=== PATIENT | male | born 1980 | race Caucasian/White ===

== ENCOUNTER 2023-05-26 13:17 | Outpatient (CLI) | payer BC, SELFPAY | END 2023-05-26 13:18 | disposition home or self-care (01) | PROVIDERS: PCP Nurse Practitioner Family; Visit Provider Nurse Practitioner Family | DX: Z00.00 Encounter for general adult medical examination without abnormal findings (principal); R10.13 Epigastric pain; R07.89 Other chest pain; R06.09 Other forms of dyspnea; R00.2 Palpitations; Z13.6 Encounter for screening for cardiovascular disorders | CPT/HCPCS: 80053; 80061; 84443; 85025 ==

== ENCOUNTER 2023-07-01 07:50 | Outpatient (CLI) | payer BC, SELFPAY | END 2023-07-01 07:51 | disposition home or self-care (01) | PROVIDERS: PCP Nurse Practitioner Family; Visit Provider Nurse Practitioner Family | DX: R07.89 Other chest pain (principal) | CPT/HCPCS: 93306 ==

== ENCOUNTER 2023-11-14 11:46 | Outpatient (CLI) | payer BC, SELFPAY | END 2023-11-14 11:47 | disposition home or self-care (01) | PROVIDERS: PCP Nurse Practitioner Family; Visit Provider Nurse Practitioner Family | DX: R10.13 Epigastric pain (principal); Z13.228 Encounter for screening for other metabolic disorders; Z13.0 Encounter for screening for diseases of the blood and blood-forming organs and certain disorders involving the immune mechanism | CPT/HCPCS: 80053; 82150; 83690; 85025 ==

== ENCOUNTER 2023-11-17 11:48 | Outpatient (CLI) | payer BC, SELFPAY | END 2023-11-17 11:49 | disposition home or self-care (01) | PROVIDERS: PCP Nurse Practitioner Family; Visit Provider Nurse Practitioner Family | DX: R10.9 Unspecified abdominal pain (principal) | CPT/HCPCS: 87338 ==

== ENCOUNTER 2023-11-22 06:32 | Outpatient (CLI) | payer BC, SELFPAY ==
--- NOTE | 2023-11-22 07:37 | W.ANESCHARGE ---
Anesthesia Charges Start Date/Time Anesthesia Start Date: 11/22/23 Anesthesia Start Time: 07:15 Stop Date/Time Anesthesia Stop Date: 11/22/23 Anesthesia Stop Time: 07:35
--- NOTE | 2023-11-22 10:44 | W.ANESCHARGE ---
Anesthesia Charges Start Date/Time Anesthesia Start Date: 11/22/23 Anesthesia Start Time: 07:15 Stop Date/Time Anesthesia Stop Date: 11/22/23 Anesthesia Stop Time: 07:35
== END 2023-11-22 06:33 | disposition home or self-care (01) ==
PROVIDERS: PCP Nurse Practitioner Family; Visit Provider Internal Medicine
DX: R12 Heartburn (principal)
CPT/HCPCS: 00731; 00811; 43239; 88305; J2704

== ENCOUNTER 2023-12-02 14:40 | Outpatient (CLI) | payer BC, SELFPAY ==
--- NOTE | 2023-12-02 15:00 | US_ITS ---
Patient: EMANUEL MCMANUS Facility:?[facility] Patient ID:?[id number] Site Patient ID:?[id number]. Site :?1980 Study:?US-Abdomen RUQ-12/02/2023 3:12:59 PM Ordering Physician:MELISSA REYES Final Report: INDICATION: : Abdominal distention COMPARISON: CT 05/01/2020 TECHNIQUE: Grayscale and color Doppler ultrasound of the right upper quadrant. FINDINGS: Pancreas: Largely obscured by bowel gas but normal where seen. Liver: Normal. No mass. Gallbladder and bile ducts: Normal gallbladder. No wall thickening. No stones or sludge. No biliary duct dilation. The common bile duct measures 5 mm. The right kidney measures 10.3 cm in length. Normal parenchymal echogenicity. Normal thickness. No cyst. No mass. No calculi. No urinary tract dilation. No ascites. Normal caliber upper abdominal aorta. IMPRESSION: Normal right upper quadrant ultrasound. Dictated by Saba Kay MD @ 12/03/2023 8:44:41 AM Signed by:?Saba Kay MD @12/03/2023 8:44:41 AM (Electronic Signature)
== END 2023-12-02 14:41 | disposition home or self-care (01) ==
LOC: US 14:42
PROVIDERS: PCP Nurse Practitioner Family; Visit Provider Nurse Practitioner Family
DX: R14.0 Abdominal distension (gaseous) (principal)
CPT/HCPCS: 76705

== ENCOUNTER 2023-12-12 15:19 | Outpatient (CLI) | payer BC, SELFPAY ==
--- NOTE | 2023-12-12 16:00 | CT_ITS ---
Patient: EMANUEL MCMANUS Facility:?[facility] Patient ID:?[id number] Site Patient ID:?[id number]. Site :?1980 Study:?CT-Abdomen W/ 99CC ISOVUE 370-12/12/2023 4:03:26 PM Ordering Physician:SAMPSON Final Report: Indication: RUQ PAIN Technique: CT Abdomen W/ 99CC ISOVUE 370 Please note that all CT scans at this facility use dose modulation, iterative reconstruction, and/or weight-based dosing when appropriate to reduce radiation dose to as low as reasonably achievable. Comparison: 05/01/2020 Findings: Mild dependent areas of atelectasis. No pleural effusion. No intrahepatic mass. Focal fat deposition is present adjacent to the falciform ligament. The spleen is normal. Normal adrenal glands. The kidneys are within normal limits. Gallbladder is unremarkable. Normal pancreas. No hiatal hernia. No gastric outlet obstruction. No dilated bowel loops. Normal appearance of the visualized small bowel and colon. No inflammatory changes. No fracture. Impression: Unremarkable CT of the abdomen. No acute findings to explain patient`s symptoms. Please note that all CT scans at this facility use dose modulation, iterative reconstruction, and/or weight-based dosing when appropriate to reduce radiation dose to as low as reasonably achievable. Dictated by John Walton MD @ 12/13/2023 8:05:00 AM Signed by:?John Walton MD @12/13/2023 8:05:00 AM (Electronic Signature)
== END 2023-12-12 15:20 | disposition home or self-care (01) ==
PROVIDERS: PCP Nurse Practitioner Family; Visit Provider Nurse Practitioner Family
DX: R10.11 Right upper quadrant pain (principal); R14.0 Abdominal distension (gaseous); R74.8 Abnormal levels of other serum enzymes
CPT/HCPCS: 74160; Q9967

== ENCOUNTER 2024-09-13 23:13 | Outpatient (REF) | payer BC, SELFPAY ==
[2024-09-14 01:27] LABS: Basophils Absolute Auto 0.06 K/uL (0.00-0.30); Basophils Percent Auto 0.9 % (0.0-3.0); Eosinophils Absolute Auto 0.13 K/uL (0.00-0.50); Hematocrit 44.6 % (37.0-53.0); Hemoglobin* 14.2 gm/dL (13.5-17.5); Immature Granulocytes Abs Auto 0.02 K/uL (0.00-0.30); Immature Granulocytes Pct Auto 0.3 %; Lymphocytes Absolute Auto 2.68 K/uL (0.90-2.90); Lymphocytes Percent Auto 40.2 % (20-44); Mean Corpuscular HGB Conc 32 gm/dL (32-36); Mean Corpuscular Hemoglobin 29 pg (26-34); Mean Corpuscular Volume 92 fL (80-100); Monocytes Percent Auto 7.2 % (0.0-11.0); Neutrophils Absolute Auto 3.29 K/uL (1.7-7.0); Neutrophils Percent Auto 49.4 % (42.0-72.0); Platelet Count* 161 K/uL (140-440); RDW Coefficient of Variation % 13.1 % (11.5-15.5); Red Blood Count 4.87 m/uL (4.30-5.90); White Blood Count* 6.66 K/uL (4.50-11.00)
[2024-09-14 01:37] LABS: Slide Review Reflex No
[2024-09-14 01:39] LABS: INR 0.92 (0.91-1.10); Prothrombin Time 12.9 Seconds
[2024-09-14 01:45] LABS: Albumin* 4.3 g/dL (3.3-5.0); Chloride* 102 mmol/L (96-114)
[2024-09-14 01:46] LABS: Potassium* 4.6 mmol/L (3.6-5.1); Sodium* 139 mmol/L (135-149)
[2024-09-14 01:47] LABS: Iron* 117 ug/dL (49-181)
[2024-09-14 01:48] LABS: Alkaline Phosphatase* 54 U/L (40-150); Anion Gap 5 mEq/L (7-15); Aspartate Amino Transferase* 24 U/L (12-35); Bilirubin Total* 0.6 mg/dL (0.1-1.5); Carbon Dioxide* 32 mmol/L (20-32); Creatinine* 0.9 mg/dL (0.5-1.5); Estimated Glomerular Filt Rate 109 ml/min; Total Protein* 6.7 g/dL (6.0-8.3)
[2024-09-14 01:49] LABS: Alanine Aminotransferase* 18 U/L (4-50); Blood Urea Nitrogen* 16 mg/dL (5-24); Calcium* 9.7 mg/dL (8.4-10.6); Glucose* 120 mg/dL (60-115)
[2024-09-14 01:57] LABS: Percent Iron Saturation 43 % (20-50); Total Iron Binding Capacity 273 ug/dL (261-462)
[2024-09-14 02:12] LABS: Vitamin D 25 Hydroxy* 59 ng/mL (30-80)
[2024-09-14 02:32] LABS: C Reactive Protein* < 0.5 mg/dL (0.5-1.0)
[2024-09-14 03:29] LABS: Vitamin B12* 577 pg/mL (243-894)
[2024-09-15 05:09] LABS: Folate, Serum 9.3 ng/mL (>=5.9)
[2024-09-17 06:59] LABS: Copper, Serum/Plasma 78.5 ug/dL (70.0-140.0); Zinc, Serum/Plasma 75.6 ug/dL (60.0-120.0)
[2024-09-17 19:59] LABS: Vitamin A (Retinol) 0.66 mg/L (0.30-1.20)
== END 2024-09-13 23:14 | disposition home or self-care (01) ==
LOC: NPINS 23:13
PROVIDERS: PCP Nurse Practitioner Family; Visit Provider Nurse Practitioner Adult Health
DX: R63.4 Abnormal weight loss (principal)
CPT/HCPCS: 80048; 80076; 82306; 82380; 82525; 82607; 82728; 82746; 83540; 83550; 84443; 84446; 84590; 84630; 85025; 85610; 86140

== ENCOUNTER 2024-10-08 14:58 | Outpatient (REF) | payer BC, SELFPAY ==
[2024-10-16 14:11] LABS: Tissue Transglut Ab IgA 1.33 FLU (0.00-4.99)
== END 2024-10-08 14:59 | disposition home or self-care (01) ==
LOC: NPINS 14:58
PROVIDERS: PCP Nurse Practitioner Family; Visit Provider Nurse Practitioner Adult Health
DX: Z83.79 Family history of other diseases of the digestive system (principal)
CPT/HCPCS: 82784; 86364

== ENCOUNTER 2024-11-29 19:09 | Emergency (ER) | payer BC, SELFPAY ==
[2024-11-29] VITALS (18 sets, daily range): BP systolic 104–145; BP diastolic 71–84; PULSE 69–91; RESP 9–22; TEMP 36.9; O2SAT 94–100; BMI 21.9
--- OUTSIDE RECORDS SUMMARY | 2024-11-29 19:45 | XMS_ITS | Clinical Summary ---
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 Gender Identity Not on file Sexual Orientation Not on file Obstetrics History Last Filed Vital Signs Vital Sign Reading Time Taken Comments Blood Pressure 103/68 02/18/2016 6:08 PM CDT Pulse 82 02/18/2016 6:08 PM CDT Temperature 36.8 C (98.3 F) 02/18/2016 6:08 PM CDT Respiratory Rate - - Oxygen Saturation 100% 02/18/2016 6:08 PM CDT Inhaled Oxygen Concentration - - Weight 98.2 kg (216 lb 8 oz) 02/18/2016 6:08 PM CDT Height 193 cm (6' 3.98) 02/18/2016 6:08 PM CDT Body Mass Index 26.36 02/18/2016 6:08 PM CDT Plan of Treatment Health Maintenance Due Date Last Done Comments Tdap 1992 Depression screening for age 12+ 1993 HIV for age 15-65 1996 Hepatitis C screening for ag e 18-79 1999 Tetanus booster 2001 Lipids for age 35-44 2016 BMI (ht and wt on same day) for age 18+ 02/17/2017 02/18/2016 COVID-19 vaccine series (2023- season) 2024 Influenza for age 9-49 06/03/2024 Pneumococcal series for age 6-49 Aged Out No longer eligible based on patient's age to complete this topic Insurance [facility] Care Teams Linen Attendant Relationship Specialty Start Date End Date John Wu MD [address] [place], [place] [id number] PCP - General Family Practice 03/19/22
--- NOTE | 2024-11-29 19:48 | ED.SOB ---
HPI - SOB/Dyspnea General Date Seen: 11/29/24 Chief Complaint: Shortness of Breath/Dyspnea Stated Complaint: SOB, numbness in limbs Time Seen by Provider: 11/29/24 19:53 Source: patient Mode of arrival: ambulatory Limitations: no limitations History of Present Illness HPI Narrative: Patient is a 44-year-old male with no pertinent medical problems current they only and medication for his small intestine bacterial overgrowth and bloating presenting for shortness of breath. He states over the past few weeks he will feel like he is constantly not able to breathe. States the Smith feels like there is not getting enough oxygen in his lungs. Today while he was driving around 18:15 he started to get diaphoretic an be symptoms for persisting. He then began to have some chest tightness. He pulled over the side of the road and called his . She came to pick him up and he was feeling very lightheaded and could not stand on his own. He states he still feeling slightly lightheaded at this time but is starting to feel better now that he is laying down and the bed. He also states he had some brain fog that improved after eating a couple pieces of chocolate. Unsure if it could be blood sugar related. No history of diabetes. He has no history of blood clots. Denies hemoptysis, recent travel, lower extremity swelling, recent surgeries, hormone use the. No history of heart disease. No family history of heart disease that he is aware of. No family history of clotting disorders. No other concerns noted Related Data Allergies Allergy/AdvReac Type Severity Reaction Status Date / Time No Known Drug Allergies Allergy Verified 11/29/24 19:23 [facility] Medical History Small intestinal bacterial overgrowth (SIBO) ?K63.8219 - Small intestinal bacterial overgrowth, unspecified (ICD-10) Pain in pelvis ?R10.2 - Pelvic and perineal pain (ICD-10) Actinic keratoses ?L57.0 - Actinic keratosis (ICD-10) Surgical History History of colonoscopy ?Z98.890 - Other specified postprocedural states (ICD-10) Status post hemorrhoidectomy ?Z98.890 - Other specified postprocedural states (ICD-10) ?Z87.19 - Personal history of other diseases of the digestive system (ICD-10) History of vasectomy ?Z98.52 - Vasectomy status (ICD-10) History of tonsillectomy and adenoidectomy (~03/05/13) ?Z90.89 - Acquired absence of other organs (ICD-10) Family History Maternal Grandmother Breast cancer Diabetes Bicuspid aortic valve Mother Bicuspid aortic valve Hiatal hernia Paternal Grandfather Skin cancer Celiac disease Father Heartburn Social History Narrative: , 3 kids, nonsmoker, no EtOH What is your current living situation?: I presently have a place to live Problems where you live: no known problems In the past 12 months, utilities in danger of being shut off: no In past 12 months, lack of transportation kept you from medical appts, meetings, work, or getting things needed for daily living: no In the past 12 mos, have been you worried that your food would run out before you had money to buy more?: never true In the past 12 mos, the food you bought just didn't last and you didn't have money to buy more?: never true Smoking Status: Never smoker Do you use any of these nicotine containing products: None How often do you have a drink containing alcohol: never How often do you have six or more drinks on one occasion: Never AUDIT-C Alcohol total score: 0 Non-prescribed substance use: denies use How often does anyone, including family, friends and others, physically hurt you: never How often does anyone, including family, friends and others, insult or talk down to you: never How often does anyone, including family, friends and others, threaten you with harm: never How often does anyone, including family, friends and others, scream or curse at you: never Exam Narrative: Exam Narrative: Const: Well-nourished, Well-developed, in mild distress Eyes: PERRL, no conjunctival injection, and symmetrical lids HENT: Atraumatic external nose and ears. Moist mucous membranes. Neck: Symmetric, trachea midline, No thyromegaly. CVS: RRR, No murmurs or gallops. Peripheral pulses 2+ and equal in all extremities RESP: Unlabored respiratory effort. Clear to auscultation bilaterally. GI: Nontender/Nondistended, No rebound or guarding. MSK:Extremities w/o deformity, Normal Active ROM Skin: Warm, Dry. No rashes or lesions. Neuro: Normal Muscle tone, No focal neurological deficits. Psych: Awake, Alert, & Oriented x3. Appropriate mood and affect. Const: Vital Signs, click to edit/add: Vital Signs - 24 hr 11/29/24 19:19 Temperature 98.4 F Pulse Rate [Right Pulse Oximeter] 91 Respiratory Rate 22 Blood Pressure [Ri ght Upper Arm] 145/84 H Pulse Oximetry 100 Oxygen Delivery Me thod Room Air Course Vital Signs Vital signs: Initial Vital Signs Temperature 98.4 F 11/29/24 19:19 Temperature Source Temporal Artery Scan 11/29/24 19:19 Pulse Rate 91 11/29/24 19:19 Pulse Rhythm Regular 11/29/24 19:19 Pulse Strength 3+ Normal 11/29/24 19:19 Respiratory Rate 22 11/29/24 19:19 Blood Pressure 145/84 H 11/29/24 19:19 Blood Pressure Mean 104 11/29/24 19:19 Blood Pressure Position Sitting 11/29/24 19:19 Pulse Oximetry 100 11/29/24 19:19 Oxygen Delivery Method Room Air 11/29/24 19:19 Vital Signs Temperature 98.4 F 11/29/24 19:19 Pulse Rate 91 11/29/24 19:19 Respiratory Rate 22 11/29/24 19:19 Blood Pressure 145/84 H 11/29/24 19:19 Pulse Oximetry 100 11/29/24 19:19 Oxygen Delivery Method Room Air 11/29/24 19:19 Temperature 98.4 F 11/29/24 19:19 Pulse Rate 91 11/29/24 19:19 Respiratory Rate 22 11/29/24 19:19 Blood Pressure 145/84 H 11/29/24 19:19 Pulse Oximetry 100 11/29/24 19:19 Oxygen Delivery Method Room Air 11/29/24 19:19 MDM - SOB/Dyspnea MDM Narrative Medical decision making narrative: Patient is a 44-year-old male presenting for shortness of breath. The differential diagnosis of shortness of breath is broad and includes common etiologies such as COPD, asthma, pneumonia, viral syndrome, etc. More serious etiologies considered include PE, CHF, coronary artery disease, pneumothorax, aortic dissection, aortic aneurysm. He is PERC negative and PE can be ruled out. Will do chest x-ray to look for signs of pneumonia or pneumothorax. EKG and troponin order to look for signs of coronary artery disease. He is otherwise stable so aortic dissection and aortic aneurysm seem unlikely. I do not hear any wheezing. Will also order a CBC, magnesium, BNP, BMP, COVID/flu/RSV. Seems unlikely symptoms were related to a hypoglycemic episode but either way after eating the sugar it is unlikely would be able to diagnose it at this time. CBC and point of care troponin returned showing no concerning abnormalities. Rest of lab work is still pending at this time. Chest x-ray reviewed by myself shows no concerning findings but I am waiting for the official radiologist read. Plan is to repeat troponin and 2 hours. Signed out to my colleague pending repeat troponin and final lab work and x-ray result Lab Data Labs: Lab Results 11/29/24 Range/Units 20:04 WBC 8.95 (4.50-11.00) K/uL RBC 4.98 (4.30-5.90) m/uL Hgb 14.4 (13.5-17.5) gm/dL Hct 44.5 (37.0-53.0) % MCV 89 (80-100) fL MCH 29 (26-34) pg MCHC 32 (32-36) gm/dL RDW Coeff of Hazel 12.7 (11.5-15.5) % Plt Count 177 (140-440) K/uL Neut % (Auto) 65.9 (42.0-72.0) % Lymph % (Auto) 25.8 (20-44) % [place] % (Auto) 6.7 (0.0-11.0) % Eos % (Auto) 0.9 (0.0-7.0) % Baso % (Auto) 0.6 (0.0-3.0) % Neut # (Auto) 5.90 (1.7-7.0) K/uL Lymph # (Auto) 2.31 (0.90-2.90) K/uL [place] # (Auto) 0.60 (0.00-0.90) K/UL Eos # (Auto) 0.08 (0.00-0.50) K/uL Baso # (Auto) 0.05 (0.00-0.30) K/uL Abs Immat Gran (auto) 0.01 (0.00-0.30) K/uL Imm/Tot Granulo (auto) 0.1 % POC Troponin I 0.00 L (0.01-0.04) ng/ml ECG Data Attestation: I personally reviewed and interpreted this ECG as follows: Prior ECG tracings: available for review Interpretation: Normal sinus rhythm with a rate of 77 beats per minute, normal intervals, normal axis, no ST or T-wave abnormalities. Appears similar previous EKG on file Discharge Plan Discharge Clinical Impression: Shortness of breath Patient Disposition: Home, Self-Care Condition: Stable Instructions: Shortness of Breath (ED) Additional Instructions: I do not know exactly what was causing her symptoms at this time. We were able to rule out heart disease, pneumonia, pneumothorax, pulmonary embolism. I do not see any emergent issues at this time but if it does persist you should follow-up with your primary care provider for further testing. Follow Up/Referrals: Jackeline Birch, BUSINESS CONTINUITY SPECIALIST, VICE PRESIDENT OF RECRUITING [Primary Care Provider] - Stand Alone Forms: TYFFON Info Instructions
[2024-11-29 20:23] LABS: Basophils Absolute Auto 0.05 K/uL (0.00-0.30); Basophils Percent Auto 0.6 % (0.0-3.0); Eosinophils Absolute Auto 0.08 K/uL (0.00-0.50); Eosinophils Percent Auto 0.9 % (0.0-7.0); Hematocrit 44.5 % (37.0-53.0); Hemoglobin* 14.4 gm/dL (13.5-17.5); Immature Granulocytes Abs Auto 0.01 K/uL (0.00-0.30); Immature Granulocytes Pct Auto 0.1 %; Lymphocytes Absolute Auto 2.31 K/uL (0.90-2.90); Lymphocytes Percent Auto 25.8 % (20-44); Mean Corpuscular HGB Conc 32 gm/dL (32-36); Mean Corpuscular Hemoglobin 29 pg (26-34); Mean Corpuscular Volume 89 fL (80-100); Monocytes Percent Auto 6.7 % (0.0-11.0); Neutrophils Percent Auto 65.9 % (42.0-72.0); Platelet Count* 177 K/uL (140-440); RDW Coefficient of Variation % 12.7 % (11.5-15.5); Red Blood Count 4.98 m/uL (4.30-5.90); White Blood Count* 8.95 K/uL (4.50-11.00)
[2024-11-29 20:29] LABS: Slide Review Reflex No
[2024-11-29 20:45] LABS: Chloride* 101 mmol/L (96-114); Sodium* 137 mmol/L (135-149)
[2024-11-29 20:46] LABS: Potassium* 3.4 mmol/L (3.6-5.1)
[2024-11-29 20:48] LABS: Anion Gap 12 mEq/L (7-15); Blood Urea Nitrogen* 20 mg/dL (5-24); Carbon Dioxide* 24 mmol/L (20-32); Creatinine* 1.1 mg/dL (0.5-1.5); Est. Creatinine Clearance* 102.77; Estimated Glomerular Filt Rate 85 ml/min; Glucose* 134 mg/dL (60-115)
[2024-11-29 20:49] LABS: Calcium* 9.3 mg/dL (8.4-10.6)
[2024-11-29 20:51] LABS: PCR FLU A Negative PCR FLU A (Negative); PCR FLU B Negative PCR FLU B (Negative); PCR RSV Negative PCR RSV (Negative); SARS PCR* Negative SARS-CoV-2 (Negative)
[2024-11-29 21:19] LABS: Magnesium* 2.2 mg/dL (1.5-2.6); NT Pro B Type NatriureticPept* < 20 pg/mL; Troponin I* < 0.01 ng/mL (0.01-0.04)
== END 2024-11-29 22:22 | disposition home or self-care (01) ==
PROVIDERS: Emergency Provider Student in an Organized Health Care Education/Training Program; PCP Nurse Practitioner Family
DX: R06.02 Shortness of breath (principal)
CPT/HCPCS: 36415; 71046; 80048; 83735; 83880; 84484; 85025; 87631; 93005; 99284

== ENCOUNTER 2025-01-10 08:27 | Outpatient (CLI) | payer BC, SELFPAY ==
[2025-01-10 13:59] LABS: Chloride* 102 mmol/L (96-114)
[2025-01-10 14:00] LABS: Potassium* 4.9 mmol/L (3.6-5.1); Sodium* 138 mmol/L (135-149)
[2025-01-10 14:02] LABS: Blood Urea Nitrogen* 18 mg/dL (5-24); Creatinine* 1.1 mg/dL (0.5-1.5); Estimated Glomerular Filt Rate 85 ml/min
[2025-01-10 14:03] LABS: Anion Gap 4 mEq/L (7-15); Calcium* 9.7 mg/dL (8.4-10.6); Carbon Dioxide* 32 mmol/L (20-32); Glucose* 89 mg/dL (60-115)
== END 2025-01-10 08:28 | disposition home or self-care (01) ==
LOC: NPINS 08:27
PROVIDERS: PCP Nurse Practitioner Family; Referring Provider Nurse Practitioner Family; Visit Provider Nurse Practitioner Adult Health
DX: E87.6 Hypokalemia (principal)
CPT/HCPCS: 80048

== ENCOUNTER 2025-07-04 08:04 | Outpatient (CLI) | payer BC, SELFPAY | END 2025-07-04 08:05 | disposition home or self-care (01) | LOC: NPINS 08:06 | PROVIDERS: PCP Nurse Practitioner Family; Visit Provider Nurse Practitioner Adult Health | DX: R14.0 Abdominal distension (gaseous) (principal) | CPT/HCPCS: 86364 ==